=== PATIENT | female | born 1975 | race Caucasian/White ===

== ENCOUNTER 2017-09-28 15:19 | Emergency (ER) | payer OTHER ==
[~2017-09-28] VITALS: Ht 170.2 cm; Wt 92.0 kg
[~2017-09-28 15:19] MED LIST: ZTHL20015 PO
[2017-09-28 15:26] VITALS: TEMP 37; Ht 170.2 cm; Wt 92.0 kg
[2017-09-28] MEDS ORDERED: SODIUM CHLORIDE 0.9% 1000ML 1,000 ML IV STA (15:38)
--- NOTE | 2017-09-28 15:55 | EMERGENCY ROOM VISIT NOTE ---
History Report prepared by Kavon: Milli Frost Under the Supervision of: Dr. Migue Garcia M.D. First contact with patient: 15:20 Chief Complaint: VAGINAL BLEEDING Stated Complaint: VAGINAL BLEEDING History of Present Illness The patient is a 41 year old female who presents to the Emergency Room with complaints of worsening vaginal bleeding that started at 9am this morning. The patient rates her pain a 5/10 in severity. She notes she had a tubal ligation in the past and a miscarriage followed after that. The was a tubal and a uterine at the same time. She had surgery 16 years ago to remove the pregnancies. The patient states she still has her uterus and tubes. She notes her last period was 2-3 months ago. Irregular menstrual cycle is normal for her. She states she has gone 3 months without a period before but never longer than that. She notes when her period comes back after being irregular, it is not normally this heavy and painful. The patient states when she called the ambulance she was in lot of pain. When she released a clot of blood, her pain subsided. She is still having clots of blood consistently come out. She notes she is experiencing some abdominal cramping right now. She states the color is normal but the volume of the blood is not normal for her. She notes she is also experiencing a headache. The patient denies any chest pain or shortness of breath. She was feeling nauseous when she was experiencing the pain but she is not feeling nauseous in the ED. She notes she has gone through 6-7 full pads since this morning. Otherwise, she states she has sat on the toilet let the blood clots come out. Source of History: patient Onset: 9am this morning Position: pelvis, other (vaginal bleeding) Symptom Intensity: 5/10 Quality: cramping Timing: worsening Associated Symptoms: + headache, + nausea, + abdominal pain, No chest pain, No SOB Review of Systems See HPI for pertinent positives and negatives. A total of ten systems were reviewed and were otherwise negative. Past Medical & Surgical Medical Problems: (1) Anxiety (2) Asthma (3) Bronchitis (4) Depression (5) GERD (gastroesophageal reflux disease) (6) Kidney stone (7) Migraine (8) Ovarian cyst (9) pharyngeal polyp (10) PNA (pneumonia) (11) Ventricular tachycardia Surgical Problems: (1) H/O tubal ligation (2) S/P tonsillectomy Family History Diabetes mellitus FH: MT (myocardial infarction) GRANDFATHER, Onset:40's - 50 FH: cancer FH: heart disease Hypertension Social History Smoking Status: Current Every Day Smoker Alcohol Use: none Drug Use: none Marital Status: in relationship Housing Status: lives with family Occupation Status: employed Current/Historical Medications No Active Prescriptions or Reported Meds Allergies Coded Allergies: Meperidine (Unverified Allergy, Unknown, HIVES, 09/28/17) Physical Exam Vital Signs Date Time Temp Pulse Resp B/P (MAP) Pulse Ox O2 Delivery O2 Flow Rate FiO2 09/28/17 19:39 88 16 115/76 98 09/28/17 19:10 72 16 125/76 96 Room Air 09/28/17 17:15 76 16 115/76 96 Room Air 09/28/17 16:17 83 09/28/17 15:26 37.0 75 16 135/72 96 Room Air Physical Exam GENERAL: Awake, alert, fatigued appearing, in no distress HENT: Normocephalic, atraumatic. Dry mucus membranes. EYES: Normal conjunctiva. Sclera non-icteric. NECK: Supple. No nuchal rigidity. FROM. No JVD. RESPIRATORY: Clear to auscultation. CARDIAC: Regular rate, normal rhythm. Extremities warm and well perfused. Pulses equal. ABDOMEN: Soft, non-distended. No rebound or guarding. No masses. Mild lower abdominal discomfort. No parapineal signs. : small amount of vaginal bleeding in the vaginal vault. No reaccumulation after bleeding cleared. No lesions. RECTAL: Deferred. MUSCULOSKELETAL: Chest examination reveals no tenderness. The back is symmetrical on inspection without obvious abnormality. There is no CVA tenderness to palpation. No joint edema. LOWER EXTREMITIES: Calves are equal size bilaterally and non-tender. No edema. No discoloration. NEURO: Normal sensorium. No sensory or motor deficits noted. SKIN: No rash or jaundice noted. 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 TRANSVAGINAL: Endometrium is unremarkable, 0.8 cm. Ill-defined intramural lesion which is slightly hypoechoic is noted within the posterior uterine body, 1.4 x 0.9 x 0.9 cm. Additional intramural lesion is noted within the mid uterus measuring up to 0.8 cm. Right ovary is unremarkable measuring 3.4 x 1.5 x 1.5 cm with arterial inflow documented. Left ovary there is a 1.6 x 1.2 x 1.3 cm complex hypoechoic thick-walled structure with increased through transmission and peripheral vascularity suggesting hemorrhagic cyst. Arterial inflow to the left ovary is documented. Left ovary overall measures 3.1 x 1.9 x 1.9 cm. No significant free pelvic fluid. IMPRESSION: 1. Multiple intramural leiomyomas, largest measuring up to 1.4 cm. 2. Hemorrhagic left ovarian cyst, 1.6 cm. No evidence of ovarian torsion. The above report was generated using voice recognition software. It may contain grammatical, syntax or spelling errors. Electronically signed by: Joesph Hamm M.D. 09/28/2017 6:36 PM Dictated Date/Time: 09/28/2017 6:32 PM Laboratory Results 09/28/17 15:50 Red Blood Count 4.03, Mean Corpuscular Volume 92.6, Mean Corpuscular Hemoglobin 31.3, Mean Corpuscular Hemoglobin Concent 33.8, Mean Platelet Volume 9.2, Neutrophils (%) (Auto) 65.4, Lymphocytes (%) (Auto) 26.3, Monocytes (%) (Auto) 5.5, Eosinophils (%) (Auto) 1.8, Basophils (%) (Auto) 0.8, Neutrophils # (Auto) 6.88, Lymphocytes # (Auto) 2.77, Monocytes # (Auto) 0.58, Eosinophils # (Auto) 0.19, Basophils # (Auto) 0.08 09/28/17 15:50 Test 09/28/17 15:50 09/28/17 16:05 White Blood Count 10.52 K/uL (4.8-10.8) Red Blood Count 4.03 M/uL (4.2-5.4) Hemoglobin 12.6 g/dL (12.0-16.0) Hematocrit 37.3 % (37-47) Mean Corpuscular Volume 92.6 fL (80-100) Mean Corpuscular Hemoglobin 31.3 pg (25-34) Mean Corpuscular Hemoglobin Concent 33.8 g/dl (32-36) Platelet Count 313 K/uL (130-400) Mean Platelet Volume 9.2 fL (7.4-10.4) Neutrophils (%) (Auto) 65.4 % Lymphocytes (%) (Auto) 26.3 % Monocytes (%) (Auto) 5.5 % Eosinophils (%) (Auto) 1.8 % Basophils (%) (Auto) 0.8 % Neutrophils # (Auto) 6.88 K/uL (1.4-6.5) Lymphocytes # (Auto) 2.77 K/uL (1.2-3.4) Monocytes # (Auto) 0.58 K/uL (0.11-0.59) Eosinophils # (Auto) 0.19 K/uL (0-0.5) Basophils # (Auto) 0.08 K/uL (0-0.2) RDW Standard Deviation 46.2 fL (36.4-46.3) RDW Coefficient of Variation 13.6 % (11.5-14.5) Immature Granulocyte % (Auto) 0.2 % Immature Granulocyte # (Auto) 0.02 K/uL (0.00-0.02) Anion Gap 10.0 mmol/L (3-11) Est Creatinine Clear Calc Drug Dose 92.7 ml/min Estimated GFR () 88.5 Estimated GFR (Non- 76.3 BUN/Creatinine Ratio 14.7 (10-20) Calcium Level 8.5 mg/dl (8.5-10.1) Total Bilirubin 0.2 mg/dl (0.2-1) Direct Bilirubin < 0.1 mg/dl (0-0.2) Aspartate Amino Transf (AST/SGOT) 15 U/L (15-37) Alanine Aminotransferase (ALT/SGPT) 24 U/L (12-78) Alkaline Phosphatase 66 U/L (45-117) Total Protein 7.1 gm/dl (6.4-8.2) Albumin 3.5 gm/dl (3.4-5.0) Lipase 185 U/L (73-393) Human Chorionic Gonadotropin, Quant < 1 mIU/mL Urine Color ORANGE Urine Appearance TURBID (CLEAR) Urine pH 8.5 (4.5-7.5) Urine Specific [place] 1.020 (1.000-1.030) Urine Protein 1+ (NEG) Urine Glucose (UA) NEG (NEG) Urine Ketones NEG (NEG) Urine Occult Blood 3+ (NEG) Urine Nitrite NEG (NEG) Urine Bilirubin NEG (NEG) Urine Urobilinogen NEG (NEG) Urine Leukocyte Esterase SMALL (NEG) Urine WBC (Auto) >30 /hpf (0-5) Urine RBC (Auto) >30 /hpf (0-4) Urine Hyaline Casts (Auto) 0 /lpf (0-5) Urine Epithelial Cells (Auto) 5-10 /lpf (0-5) Urine Bacteria (Auto) NEG (NEG) Laboratory results reviewed by me Medications Administered Medications (Trade) Dose Ordered Sig/Anabel Route Start Time Stop Time Status Last Admin Dose Admin Sodium Chloride 1,000 ml @ 999 mls/hr Q1H1M STAT IV 09/28/17 15:38 09/28/17 16:38 DC 09/28/17 15:38 999 MLS/HR ED Course 1520: The patient was evaluated in room B7. A complete history and physical exam was performed. 1538: Sodium Chloride 1000 ml @ 999 mls/hr IV. 1900: I reevaluated the patient, she is resting comfortably. There was a small amount of vaginal bleeding in the vaginal vault. It has been slowing down once I cleared the vault. No reaccumulation and no lesions. 1930: I reevaluated the patient. Discussed results and discharge instructions: She verbalized understanding and agreement. The patient is ready for discharge. Medical Decision I reviewed the patient's past medical history, medications, and the nursing notes as described above. The patient's presentation and history were concerning for Spontaneous , atopic , menorrhagia. The patient is a 41 y/o woman with pmhx of tubal ligation but with heterotopic remotely, irregular menstrual cycles presents to the ED with abdominal cramping and heavy vaginal bleeding that started this morning per HPI. On arrival the patient is fatigued but in NAD, AFVSS. Labs unremarkable, including HCG negative. Formal TVUS shows numerous leyiomyomas and left hemorrhagic ovarian cyst. Pelvic exam with small amount of vaginal bleeding in the vaginal vault with no reaccumulation after blood cleared. Patient feeling improved after IVF. Given improved with stable VS and unremarkable labs emergent process not likely. Findings and plan for range manager follow-up reviewed with patient. Patient agreeable and d/c'd per discharge instructions. Medication Reconcilliation Current Medication List: was personally reviewed by me Blood Pressure Screening Patient's blood pressure: Normal blood pressure Impression Primary Impression: Abnormal vaginal bleeding Additional Impressions: Leiomyoma of uterus Hemorrhagic ovarian cyst Scribe Attestation The scribe's documentation has been prepared under my direction and personally reviewed by me in its entirety. I confirm that the note above accurately reflects all work, treatment, procedures, and medical decision making performed by me. Departure Information Dispostion Home / Self-Care Prescriptions No Active Prescriptions or Reported Meds Referrals Shaka Walters M.D. (PCP) Patient Instructions Cyst Ruptured Ovarian Tx, ED Cyst Ovarian, ED Fibroids, My [facility] Additional Instructions Please follow up with your electric sealing machine operator in the next 1-3 days for re-evaluation. You were found to have multiple uterine fibroids as well as a ruptured ovarian cyst. Otherwise, your exam, ultrasound, and lab results did not show signs of an emergent condition at this time. Acetaminophen and Ibuprofen for pain as needed. Ensure hydration. Return to the emergency department for worsening symptoms as described in the accompanying instructions. Problem Qualifiers
[2017-09-28 16:07] LABS: BASO % 0.8 %; BASO ABS # 0.08 K/uL (0-0.2); COMPLETE YES; EOS % 1.8 %; HEMATOCRIT 37.3 % (37-47); IG% 0.2 %; LYMPH % 26.3 %; LYMPH ABS # 2.77 K/uL (1.2-3.4); MEAN CELL VOLUME 92.6 fL (80-100); MEAN CORPUSCULAR HEMOGLOBIN 31.3 pg (25-34); MEAN CORPUSCULAR HGB CONC 33.8 g/dl (32-36); MEAN PLATELET VOLUME 9.2 fL (7.4-10.4); MONO % 5.5 %; NEUT % 65.4 %; PLATELET COUNT 313 K/uL (130-400); RED BLOOD COUNT 4.03 M/uL (4.2-5.4); WHITE BLOOD COUNT 10.52 K/uL (4.8-10.8)
[2017-09-28 16:43] LABS: URINE APPEARANCE TURBID (CLEAR); URINE BILIRUBIN NEG (NEG); URINE COLOR ORANGE; URINE NITRITE NEG (NEG); URINE PH 8.5 (4.5-7.5); UROBILINOGEN NEG (NEG); ZZUR CULT IF INDIC CLEAN CATCH YES
[2017-09-28 16:48] LABS: ALKALINE PHOSPHATASE 66 U/L (45-117); ALT/SGPT 24 U/L (12-78); BLOOD UREA NITROGEN 14 mg/dl (7-18); BUN/CREATININE RATIO 14.7 (10-20); CALCIUM 8.5 mg/dl (8.5-10.1); CARBON DIOXIDE 24 mmol/L (21-32); CHLORIDE 106 mmol/L (98-107); CREATININE 0.93 mg/dl (0.60-1.20); GLUCOSE 129 mg/dl (70-99); POTASSIUM 4.1 mmol/L (3.5-5.1); SODIUM 140 mmol/L (136-145)
[2017-09-28 16:49] LABS: AST/SGOT 15 U/L (15-37)
[2017-09-28 16:58] LABS: MANUAL MICROSCOPIC REQUIRED? NO; REVIEW REQ? NO; SULFASALICYLIC ACID POS (NEG)
--- NOTE | 2017-09-28 18:37 | DIAGNOSTIC IMAGING REPORT ---
TRANSVAG-FEMALE PELVIS HISTORY: 41 years-old Female EVALUATE OB-PORCELAIN MIXER/VAGINAL BLEEDING acute vaginal bleeding COMPARISON: Pelvic ultrasound 01/04/2014 TECHNIQUE: Multiple real-time sonographic images of the deep pelvic structures were obtained transabdominally and transvaginally assessing grayscale appearance, color and spectral flow FINDINGS: TRANSABDOMINAL: Retroflexed uterus appears unremarkable, 9.0 x 5.0 x 6.6 cm.. TRANSVAGINAL: Endometrium is unremarkable, 0.8 cm. Ill-defined intramural lesion which is slightly hypoechoic is noted within the posterior uterine body, 1.4 x 0.9 x 0.9 cm. Additional intramural lesion is noted within the mid uterus measuring up to 0.8 cm. Right ovary is unremarkable measuring 3.4 x 1.5 x 1.5 cm with arterial inflow documented. Left ovary there is a 1.6 x 1.2 x 1.3 cm complex hypoechoic thick-walled structure with increased through transmission and peripheral vascularity suggesting hemorrhagic cyst. Arterial inflow to the left ovary is documented. Left ovary overall measures 3.1 x 1.9 x 1.9 cm. No significant free pelvic fluid. IMPRESSION: 1. Multiple intramural leiomyomas, largest measuring up to 1.4 cm. 2. Hemorrhagic left ovarian cyst, 1.6 cm. No evidence of ovarian torsion. The above report was generated using voice recognition software. It may contain grammatical, syntax or spelling errors. Electronically signed by: Joesph Hamm M.D. 09/28/2017 6:36 PM Dictated Date/Time: 09/28/2017 6:32 PM
[2017-09-28 19:39] VITALS: BP 115/76; PULSE 88; O2SAT 98
== END 2017-09-28 19:45 | disposition home or self-care (01) ==
LOC: EDBD 15:19 → C.EDB 15:20
DX: N93.9 Abnormal uterine and vaginal bleeding, unspecified (principal); D25.1 Intramural leiomyoma of uterus; N83.202 Unspecified ovarian cyst, left side; F41.9 Anxiety disorder, unspecified; J45.909 Unspecified asthma, uncomplicated; F32.9 Major depressive disorder, single episode, unspecified; K21.9 Gastro-esophageal reflux disease without esophagitis; G43.909 Migraine, unspecified, not intractable, without status migrainosus; J39.2 Other diseases of pharynx; F17.200 Nicotine dependence, unspecified, uncomplicated; Z87.442 Personal history of urinary calculi; Z98.51 Tubal ligation status; Z83.3 Family history of diabetes mellitus; Z82.49 Family history of ischemic heart disease and other diseases of the circulatory system